=== PATIENT | male | born 1930 | race Caucasian/White ===

== ENCOUNTER 2016-10-27 10:15 | Outpatient (CLI) | payer MEDICARE ==
[2016-10-27 11:20] LABS: #Basophils 0.1 thou/uL (0.0-0.2); #Eosinphils 0.1 thou/uL (0.0-0.7); #Lymphocytes 1.1 thou/uL (1.20-3.40); #Monocytes 0.8 thou/uL (0.11-0.59); #Neutrophils 3.5 thou/uL (1.40-6.50); %Eosinophils 1.6 % (0.0-10.0); %Monocytes 14.3 % (0.0-10.0); Hematocrit 45.4 % (42.0-52.0); Mean Platelet Volume 7.1 fL (7.4-10.4); Red Blood Cell (RBC) Count 4.85 mill/uL (4.70-6.10); White Blood Cell (WBC) Count 5.5 thou/uL (4.8-10.8)
[2016-10-27 12:35] LABS: ALT (SGPT) 20 U/L (0-55); AST (SGOT) 27 U/L (5-34); Alkaline Phosphatase 56 U/L (40-150); Bilirubin, Direct 0.3 mg/dL (0.1-0.3); Bilirubin, Total 0.8 mg/dL (0.2-1.2); Protein, Total 6.7 g/dL (5.8-8.1)
== END 2016-10-27 10:16 | disposition home or self-care (01) ==
LOC: BURLAB 10:15
PROVIDERS: ATTEND Urology
DX: N40.1 Benign prostatic hyperplasia with lower urinary tract symptoms (principal); E29.1 Testicular hypofunction
CPT/HCPCS: 36415; 80076; 84153; 85025

== ENCOUNTER 2016-12-21 15:15 | Outpatient (CLI) | payer MEDICARE | END 2016-12-21 15:16 | disposition home or self-care (01) | LOC: BURLAB 15:15 | PROVIDERS: ATTEND Urology | DX: R97.20 Elevated prostate specific antigen [PSA] (principal) | CPT/HCPCS: 36415; 84153 ==

== ENCOUNTER 2017-04-27 08:45 | Outpatient (CLI) | payer MEDICARE | END 2017-04-27 08:46 | disposition home or self-care (01) | LOC: BURLAB 08:45 | PROVIDERS: ATTEND Urology | DX: R97.20 Elevated prostate specific antigen [PSA] (principal) | CPT/HCPCS: 36415; 84153 ==